=== PATIENT | female | born 1935 | race Caucasian/White ===

== ENCOUNTER → 2020-11-16 | Day surgery (SDC) | payer MEDICARE, BC | END | disposition home or self-care (01) | LOC: MSO 08:14 | DX: H25.812 Combined forms of age-related cataract, left eye (principal); H04.123 Dry eye syndrome of bilateral lacrimal glands; I10 Essential (primary) hypertension; F17.210 Nicotine dependence, cigarettes, uncomplicated; M19.90 Unspecified osteoarthritis, unspecified site; Z79.899 Other long term (current) drug therapy; Z88.0 Allergy status to penicillin; Z88.8 Allergy status to other drugs, medicaments and biological substances | CPT/HCPCS: 00142; J0171; J2250; V2632 ==

== ENCOUNTER 2021-06-26 09:25 | Emergency (ER) | payer MEDICARE, BC ==
[2021-06-26] MEDS ORDERED: AMLODIPINE BES2.5 MG PO (09:32)
[2021-06-26] MEDS ORDERED: FISH OIL1 IU PO (09:33)
[2021-06-26] MEDS ORDERED: SINGULAIR 110 MG/TAB (09:33)
[2021-06-26] MEDS ORDERED: DULOXETINE30 MG PO (09:33)
[2021-06-26] MEDS ORDERED: FLUTICASON0.05 MG/AC NS (09:33)
[2021-06-26] MEDS ORDERED: ALLER-TEC10 MG PO (09:33)
[2021-06-26] MEDS ORDERED: RAMIPRIL10 MG PO (09:34)
[2021-06-26 10:41] LABS: BASO # 0.02 (0.02-0.10); EOS # 0.09 (0.04-0.40); HEMATOCRIT 34.2 % (37.0-47.0); HEMOGLOBIN 10.7 g/dL (12.5-16.0); LYMPH# 0.81 (1.50-4.00); MEAN CELL VOLUME 98 fl (78-100); MEAN CORPUSCULAR HEMOGLOBIN 31 pg (27-31); MEAN CORPUSCULAR HGB CONC 31 g/dL (33-37); MEAN PLATELET VOLUME 8.2 fl (7.4-10.4); MONO # 0.71 (0.20-0.80); NEU # 7.67 (1.40-6.50); PLATELET COUNT 237 K/mm3 (130-400); RED BLOOD COUNT 3.49 M/mm3 (4.10-5.30); WHITE BLOOD COUNT 9.4 K/mm3 (4.8-10.8)
[2021-06-26 10:51] LABS: ALBUMIN 3.6 g/dL (3.4-4.8); POTASSIUM 4.1 mmol/L (3.5-5.1)
[2021-06-26 10:52] LABS: CALCIUM 9.3 mg/dL (8.3-10.5)
[2021-06-26 10:53] LABS: TOTAL PROTEIN 6.7 g/dL (6.2-8.1)
[2021-06-26 10:55] LABS: TOTAL BILIRUBIN 0.5 mg/dL (0.2-1.2)
[2021-06-26 11:35] LABS: PH-URINE 6.5 (5.0 - 8.0); URINE APPEARANCE HAZY; URINE COLOR YELLOW; URINE GLUCOSE NEGATIVE (NEGATIVE); URINE KETONE NEGATIVE (NEGATIVE); URINE PROTEIN(semi-quant) TRACE mg/dL (NEGATIVE)
[2021-06-26 11:36] LABS: URINE BILIRUBIN NEGATIVE (NEGATIVE); URINE BLOOD NEGATIVE (NEGATIVE); URINE LEUKOCYTE ESTERASE 2+ (NEGATIVE); URINE NITRATE NEGATIVE (NEGATIVE); URINE UROBILINOGEN NORMAL (NORMAL); URINE WBC 16-30 /hpf (0-3)
[2021-06-26] MEDS ORDERED: MACROBID 100 M100 MG PO (12:51)
[2021-06-26 13:37] VITALS: BP 154/86
== END 2021-06-26 12:59 | disposition home or self-care (01) ==
LOC: ED 09:25
PROVIDERS: Nurse Practitioner
DX: S70.02XA Contusion of left hip, initial encounter (principal); S70.12XA Contusion of left thigh, initial encounter; R07.89 Other chest pain; N39.0 Urinary tract infection, site not specified; I10 Essential (primary) hypertension; Z79.899 Other long term (current) drug therapy; W01.0XXA Fall on same level from slipping, tripping and stumbling without subsequent striking against object, initial encounter
CPT/HCPCS: Q9967

== ENCOUNTER 2021-07-14 15:23 | Emergency (ER) | payer MEDICARE, BC ==
[~2021-07-14] VITALS: Ht 157.5 cm; Wt 62.3 kg
[~2021-07-14 15:23] MED LIST: ALLER-TEC10 MG PO; AMLODIPINE BES2.5 MG PO; DULOXETINE30 MG PO; FISH OIL1 IU PO; FLUTICASON0.05 MG/AC NS; MACROBID 100 M100 MG PO; RAMIPRIL10 MG PO; SINGULAIR 110 MG/TAB
[2021-07-14 16:08] LABS: HEMATOCRIT 35.6 % (37.0-47.0); HEMOGLOBIN 11.4 g/dL (12.5-16.0); MEAN CELL VOLUME 94 fl (78-100); MEAN CORPUSCULAR HEMOGLOBIN 30 pg (27-31); MEAN CORPUSCULAR HGB CONC 32 g/dL (33-37); MEAN PLATELET VOLUME 7.6 fl (7.4-10.4); RED BLOOD COUNT 3.78 M/mm3 (4.10-5.30); RED CELL DISTRIBUTION WIDTH 13.8 % (11.5-14.5); WHITE BLOOD COUNT 14.4 K/mm3 (4.8-10.8)
[2021-07-14 16:19] LABS: ALBUMIN 3.6 g/dL (3.4-4.8)
[2021-07-14 16:20] LABS: POTASSIUM 4.3 mmol/L (3.5-5.1)
[2021-07-14 16:21] LABS: CALCIUM 9.6 mg/dL (8.3-10.5)
[2021-07-14 16:22] LABS: TOTAL PROTEIN 7.1 g/dL (6.2-8.1)
[2021-07-14 16:23] LABS: PLATELET COUNT 624 K/mm3 (130-400)
[2021-07-14 16:24] LABS: TOTAL BILIRUBIN 0.3 mg/dL (0.2-1.2)
[2021-07-14 17:18] LABS: LYMPHOCYTE 9 % (20-51); MONOCYTE 12 % (3-10); NEUTROPHILS 79 % (42-75)
[2021-07-14 17:19] LABS: URINE APPEARANCE HAZY; URINE BILIRUBIN NEGATIVE (NEGATIVE); URINE BLOOD TRACE (NEGATIVE); URINE COLOR YELLOW; URINE GLUCOSE NEGATIVE (NEGATIVE); URINE KETONE NEGATIVE (NEGATIVE); URINE LEUKOCYTE ESTERASE TRACE (NEGATIVE); URINE NITRATE NEGATIVE (NEGATIVE); URINE PROTEIN(semi-quant) TRACE mg/dL (NEGATIVE); URINE UROBILINOGEN NORMAL (NORMAL)
[2021-07-14] MEDS ORDERED: CEPHALEXIN250 MG PO (17:55)
[2021-07-14 18:18] VITALS: BP 170/91
== END 2021-07-14 18:16 | disposition home or self-care (01) ==
LOC: ED 15:23
PROVIDERS: Physician Assistant
DX: R82.71 Bacteriuria (principal); R82.81 Pyuria; D72.828 Other elevated white blood cell count; R53.81 Other malaise; M79.605 Pain in left leg; I10 Essential (primary) hypertension; Z79.899 Other long term (current) drug therapy; Z20.822 Contact with and (suspected) exposure to COVID-19
CPT/HCPCS: J7030

== ENCOUNTER 2021-08-09 10:54 | Outpatient (RCR) | payer MEDICARE, BC ==
[~2021-08-09 10:54] MED LIST changes: +CEPHALEXIN250 MG PO
== END 2021-08-16 17:00 | disposition home or self-care (01) ==
LOC: PT 10:54
DX: M79.605 Pain in left leg (principal); R53.1 Weakness; R26.9 Unspecified abnormalities of gait and mobility

== ENCOUNTER 2021-08-21 16:22 | Emergency (ER) | payer MEDICARE, BC ==
[2021-08-21 16:29] VITALS: BP 153/93
== END 2021-08-21 18:02 | disposition home or self-care (01) ==
LOC: ED 16:22
DX: J18.9 Pneumonia, unspecified organism (principal); I10 Essential (primary) hypertension; Z20.822 Contact with and (suspected) exposure to COVID-19; Z88.1 Allergy status to other antibiotic agents; Z79.899 Other long term (current) drug therapy
CPT/HCPCS: J7030; Q9967

== ENCOUNTER → 2021-08-21 | Outpatient (CLI) | payer MEDICARE, BC ==
[2021-08-21 15:33] LABS: BASO # 0.04 K/mm3 (0.02-0.10); EOS # 0.08 K/mm3 (0.04-0.40); EOS % 0.7 % (1.0-5.0); HEMATOCRIT 41.7 % (37.0-47.0); HEMOGLOBIN 13.1 g/dL (12.5-16.0); LYMPH# 1.54 K/mm3 (1.50-4.00); MEAN CELL VOLUME 94 fl (78-100); MEAN CORPUSCULAR HEMOGLOBIN 30 pg (27-31); MEAN CORPUSCULAR HGB CONC 31 g/dL (33-37); MONO # 0.97 K/mm3 (0.20-0.80); NEU # 9.49 K/mm3 (1.40-6.50); PLATELET COUNT 542 K/mm3 (130-400); RED BLOOD COUNT 4.42 M/mm3 (4.10-5.30); WHITE BLOOD COUNT 12.2 K/mm3 (4.8-10.8)
[2021-08-21 15:48] LABS: POTASSIUM 4.5 mmol/L (3.5-5.1)
[2021-08-21 15:49] LABS: CALCIUM 10.1 mg/dL (8.3-10.5)
[2021-08-21 16:10] LABS: D-DIMER 1.89 mg/L FEU (0.15-0.50)
== END ==
LOC: LAB 15:06
PROVIDERS: Nurse Practitioner Family
DX: R00.0 Tachycardia, unspecified (principal); R09.02 Hypoxemia; R06.02 Shortness of breath

== ENCOUNTER 2021-10-30 11:05 | Outpatient (RCR) | payer MEDICARE, BC | END 2021-11-20 | disposition home or self-care (01) | LOC: PT | DX: M79.605 Pain in left leg (principal); R53.1 Weakness; R26.9 Unspecified abnormalities of gait and mobility ==

== ENCOUNTER 2021-11-21 11:00 | Outpatient (RCR) | payer MEDICARE, BC | END 2021-12-18 | disposition home or self-care (01) | LOC: PT | DX: M79.605 Pain in left leg (principal); R53.1 Weakness; R26.9 Unspecified abnormalities of gait and mobility ==

== ENCOUNTER 2021-12-19 13:02 | Outpatient (RCR) | payer MEDICARE, BC | END 2022-01-18 | disposition home or self-care (01) | LOC: PT | DX: M79.605 Pain in left leg (principal); R53.1 Weakness; R26.9 Unspecified abnormalities of gait and mobility ==

== ENCOUNTER 2022-01-26 13:00 | Outpatient (RCR) | payer MEDICARE, BC | END 2022-02-17 | disposition still patient (30) | LOC: PT | DX: M79.605 Pain in left leg (principal); R53.1 Weakness; R26.9 Unspecified abnormalities of gait and mobility ==